=== PATIENT | female | born 1985 | race Caucasian/White ===

== ENCOUNTER → 2016-10-18 | Outpatient (CLI) | payer BC, SELFPAY | LOC: CT 14:00 | DX: R07.89 Other chest pain (principal) | CPT/HCPCS: J7050; Q9963 ==

== ENCOUNTER → 2016-11-14 | Outpatient (CLI) | payer BC, SELFPAY | LOC: ECHO 11:30 | DX: I47.1 Supraventricular tachycardia (principal); I10 Essential (primary) hypertension; R09.1 Pleurisy; R00.2 Palpitations; R06.02 Shortness of breath; R07.89 Other chest pain | CPT/HCPCS: ECHO; 93306 ==

== ENCOUNTER → 2016-11-14 | Outpatient (CLI) | payer BC, SELFPAY | LOC: HEART 5 10-22 09:30 | DX: R00.2 Palpitations (principal); R06.02 Shortness of breath ==

== ENCOUNTER → 2016-12-03 | Outpatient (CLI) | payer BC, SELFPAY ==
[2016-12-03 14:46] LABS: HEMOGLOBIN 13.1 gm/dl (12.3-15.3); RED BLOOD COUNT 4.66 M/UL (4.00-5.10); WHITE BLOOD COUNT 8.5 K/UL (4.5-11.0)
[2016-12-03 15:19] LABS: BUN/CREATININE RATIO 19 (0-10)
== END ==
LOC: LAB 14:18
PROVIDERS: Internal Medicine
DX: I10 Essential (primary) hypertension (principal); B37.9 Candidiasis, unspecified; R09.1 Pleurisy; R31.9 Hematuria, unspecified; R06.00 Dyspnea, unspecified; R30.0 Dysuria
CPT/HCPCS: 36415; 80048; 81001; 85025

== ENCOUNTER → 2017-01-21 | Outpatient (CLI) | payer BC, SELFPAY | LOC: LAB 12:04 | DX: E28.2 Polycystic ovarian syndrome (principal) | CPT/HCPCS: 36415; 82627; 83498; 84144; 84146 ==

== ENCOUNTER → 2020-09-01 | Outpatient (CLI) | payer OTHER | LOC: EXRD 13:04 | DX: M79.605 Pain in left leg (principal); R00.2 Palpitations | CPT/HCPCS: 93926; 93971 ==

== ENCOUNTER → 2021-12-19 | Outpatient (CLI) | payer OTHER | LOC: KOH-I 13:58 | DX: E04.2 Nontoxic multinodular goiter (principal) | CPT/HCPCS: 76536 ==

== ENCOUNTER → 2022-03-09 | Outpatient (CLI) | payer OTHER | LOC: KOH-I 13:59 | DX: R06.00 Dyspnea, unspecified (principal) | CPT/HCPCS: 71046 ==